=== PATIENT | male | born 1940 | race Caucasian/White ===

== ENCOUNTER → 2020-09-29 12:26 | Outpatient (CLI) | payer MEDICARE, OTHER, SELFPAY | PROVIDERS: PCP Internal Medicine | DX: J98.01 Acute bronchospasm (principal); Z29.8 Encounter for other specified prophylactic measures | CPT/HCPCS: 94642 ==

== ENCOUNTER → 2020-10-27 12:39 | Outpatient (CLI) | payer MEDICARE, OTHER, SELFPAY | PROVIDERS: PCP Internal Medicine | DX: Z29.8 Encounter for other specified prophylactic measures (principal) | CPT/HCPCS: 94642 ==

== ENCOUNTER → 2020-11-19 12:51 | Outpatient (CLI) | payer MEDICARE, OTHER, SELFPAY | PROVIDERS: PCP Internal Medicine | DX: Z29.8 Encounter for other specified prophylactic measures (principal) | CPT/HCPCS: 94642 ==

== ENCOUNTER → 2020-12-22 12:45 | Outpatient (CLI) | payer MEDICARE, OTHER, SELFPAY | PROVIDERS: PCP Internal Medicine | DX: Z29.8 Encounter for other specified prophylactic measures (principal) | CPT/HCPCS: 94642 ==